=== PATIENT | female | born 1965 | race Caucasian/White ===

== ENCOUNTER 2024-08-27 09:40 | Outpatient (AMB) | payer MEDICARE, OTHER, SELFPAY ==
[2024-08-27 10:03] VITALS: BP 144/81; PULSE 81; RESP 18; TEMP 35.5; O2SAT 95; BMI 20.2
--- NOTE | 2024-08-27 10:03 | RHCORTHONT_ITS ---
Vital signs 08/27/24 10:03 Height 1.63 m Height Method Stated Weight 53.722 kg Weight Measurement Method Standing Scale BMI 20.2 BP 144/81 H Blood Pressure Source Automatic Cuff Blood Pressure Location Right Upper Arm Position Sitting Respiration 18 Pulse 81 Pulse Source Monitor Temp 95.9 F L Temp Source Temporal Artery Scan Pulse Oximetry (%) 95 Oxygen Delivery Method Room Air Med/Allergies Allergies & Medications Allergies bacitracin [From Cortisporin] Allergy (Verified 08/27/24 10:04) codeine Allergy (Verified 08/27/24 10:04) hydrocortisone [From Cortisporin] Allergy (Verified 08/27/24 10:04) neomycin [From Cortisporin] Allergy (Verified 08/27/24 10:04) polymyxin B [From Cortisporin] Allergy (Verified 08/27/24 10:04) Sulfa (Sulfonamide Antibiotics) Allergy (Verified 08/27/24 10:04) tramadol Allergy (Verified 08/27/24 10:04) Medication Reconciliation amlodipine 5 mg tablet 5 mg PO DAILY 05/15/24 [History Confirmed 08/27/24] ergocalciferol (vitamin D2) 1,250 mcg (50,000 unit) capsule See Rx Instructions .Route .COMPLEX 05/15/24 [History Confirmed 08/27/24] gabapentin 300 mg capsule 300 mg PO 2XD 05/15/24 [History Confirmed 08/27/24] polyethylene glycol 3350 17 gram/dose oral powder (Miralax) 4 g PO QDAY #850 grams 05/18/24 [Rx Confirmed 08/27/24] Exam Exam Patient is in no acute distress and is cooperative with the examination today. Patient has a normal mood and affect. Breathing is nonlabored. In no respiratory distress. Bilateral extremities were evaluated and demonstrates sensation intact to light touch. Palpable pedal pulses are present. No significant edema is present. Left hip incision is clean dry and intact. She has no pain with logroll. Assessment and Plan Problem List (1) Fracture of hip: Status: Acute Plan: Patient is doing well status post left total hip replacement for femoral neck fracture. She should continue towork with physical therapy. Her x-rays demonstrate a cementless total hip replacement in great alignment position. I will see her back in approximately 6 months. She is very happy. (2) Left displaced femoral neck fracture: Status: Acute Office Procedures GNS Level of Care Nursing/Assessment Patient Status: Established Patient Nursing Assessment/Reassesment: Medication Reconciliation, Update PMH in EMR and Vital Signs Coordination of Care: Complex Care and Chronic Disease 1-5, Education Complex Pt/Fam, Consent,records obtained, informed consent, Results/Orders obtained and Staff clarify orders Established Patient Charge Established Patient Point Assignment: 95 Established Patient Point Charge: EP Level 3 (80-115) MA Intake Visit Data Collection New Patient or Established: Established Patient (seen at [facility] within 3 years) Reason for Visit:: 6 WEEK POST OP HIP FX Seen by Clinical Staff ONLY (RN/MA): No Verbal consent obtained for Telemed visit?: No Hoop Rolls Operator Required: No PCP or OBGYN visit in last 3 months: Yes Hx Now: No Do You Feel Safe at Home: Yes Authorities Contacted: N/A Questionairres Past Medical History Past Medical History Have you ever been diagnosed with any of the following: Neurological Problems Seizures: No Cardiology Problems Congestive Heart Failure: No Hypertension: Yes Respiratory Problems Chronic Obstructive Pulmonary Disease (COPD): No Asthma: Yes Genital/Urinary Problems Renal Disease: No Musculoskeletal Problems Carpal Tunnel Syndrome: Yes Endocrine Problems Diabetes Mellitus Type 1: No Diabetes Mellitus Type 2: No Other Problems Blood Transfusions: No Blood Transfusion Reaction: No Anesthesia Reactions: Yes (severe nausea) Surgical History Hysterectomy: Yes Subjective Visit Visit for: post op #2 and hip Immunization / Flu Flu Vaccine in the Last 12 Months: No Flu Vaccine Exclusion Criteria: Already Received History of Present Illness Chief complaint: 6 POST OP HIP FX Kaylyn is doing well 6 months status post total left hip replacement for femoral neck fracture. She is doing well. She has some issues with her left ankle. She is currently be treated by another orthopedic surgeon and may be getting hardware removal. She is now seeing a linen controller and is likely to get injections Personal History Red flag PMH: BMI BMI Counceling provided: Yes Pain Pain level (0-10): 3 Pain duration: COMES AND GOES Pain location: other (specify) (HIP ) Pain quality: dull and aching Pain timing: increases with activity Associated signs & symptoms: none Ambulatory data Ambulatory device: none Treatments Improvement with previous injections: No Improvement with PT: No Improvement with NSAIDS: n/a Review of Systems Review of Systems: All systems negative unless otherwise noted in HPI.
== END 2024-08-27 10:19 | disposition home or self-care (01) ==
LOC: HODSRG 09:40
PROVIDERS: Supervising Provider Orthopaedic Surgery Adult Reconstructive Orthopaedic Surgery; Visit Provider Orthopaedic Surgery Adult Reconstructive Orthopaedic Surgery
DX: S72.002D Fracture of unspecified part of neck of left femur, subsequent encounter for closed fracture with routine healing (principal); X58.XXXD Exposure to other specified factors, subsequent encounter; Z96.642 Presence of left artificial hip joint
CPT/HCPCS: 99213; G0463

== ENCOUNTER → 2024-08-27 | Outpatient (CLI) | payer MEDICARE, OTHER, SELFPAY ==
--- NOTE | 2024-08-27 08:46 | XR_ITS ---
Examination:Left hip AP, lateral, AP pelvis 3 views Technique: Hip AP lateral, AP pelvis, 3 views Exam date and time:August 27, 2024 0929 hours INDICATIONS: Status post left hip replacement surgery May 16, 2024 FINDINGS: Total left hip arthroplasty. Satisfactory alignment The prosthetic stem is stable in alignment in the femoral shaft compared to the 92,024 exam Right hip bones of the pelvis intact IMPRESSION: Total left hip arthroplasty with satisfactory alignment.
== END | disposition home or self-care (01) ==
PROVIDERS: PCP Student in an Organized Health Care Education/Training Program; Referring Provider Orthopaedic Surgery Adult Reconstructive Orthopaedic Surgery; Visit Provider Orthopaedic Surgery Adult Reconstructive Orthopaedic Surgery
DX: M16.12 Unilateral primary osteoarthritis, left hip (principal); Z96.642 Presence of left artificial hip joint
CPT/HCPCS: 73502

== ENCOUNTER → 2024-11-10 | Outpatient (CLI) | payer MEDICARE, OTHER, SELFPAY ==
--- NOTE | 2024-11-10 | XR_ITS ---
EXAMINATION: Ankle, left 3 views . Technique: Ankle AP, oblique, lateral 3 views Date and time of exam: November 10, 2024 0728 hours INDICATIONS: Acute ankle fractures March 01, 2024 postop FINDINGS: Healed fractures distal fibular shaft and medial malleolus with satisfactory alignment No ankle dislocation IMPRESSION: Healed fractures distal fibular shaft and medial malleolus with satisfactory alignment
== END | disposition home or self-care (01) ==
LOC: CDIM 07:15
PROVIDERS: Referring Provider Orthopaedic Surgery; Visit Provider Orthopaedic Surgery
DX: Z87.81 Personal history of (healed) traumatic fracture (principal)
CPT/HCPCS: 73610

== ENCOUNTER → 2025-02-17 | Outpatient (CLI) | payer MEDICARE, OTHER, SELFPAY ==
--- NOTE | 2025-02-17 11:07 | EKG_ITS ---
[facility] Test Date: 2025-02-17 Pat Name: AMAURI ANDERSEN Department: Room: - Gender: Female Shooting Gallery Operator: KELL : 1965 Requested By: Ozzy Mendez Order Number: [id number] Reading MD: Ozzy Mendez Measurements Intervals [place] Rate: 73 P: 62 AK: 162 QRS: 80 QRSD: 129 T: 26 QT: 435 QTc: 481 Interpretive Statements SINUS RHYTHM MODERATE INTRAVENTRICULAR CONDUCTION DELAY [110+ ms QRS DURATION] NONSPECIFIC T-WAVE ABNORMALITY Compared to ECG 05/14/2024 19:56:44 T-wave abnormality now present /store/S0/[id number]/[id number].pdf
[2025-02-17 11:17] VITALS: BMI 19.5
[2025-02-17 14:06] LABS: Basophils % (Auto) 1 % (0-2.5); Eosinophils % (Auto) 1 % (0-10); Hematocrit 27.9 % (36.0-46.0); Immature Granulocytes % (Auto) 0 % (0-0); Immature Granulocytes Auto 0.01 Thou/mm3 (0.00-0.00); Lymphocytes # (Auto) 1.7 Thou/mm3 (1.0-4.8); Lymphocytes % (Auto) 29 % (10-50); Mean Corpuscular Hemoglobin 20.1 pg (25.0-35.0); Mean Corpuscular Volume 69 fL (80-100); Monocytes # (Auto) 0.6 Thou/mm3 (0.0-0.8); Monocytes % (Auto) 10 % (0-12); Neutrophils # (Auto) 3.6 Thou/mm3 (1.8-7.7); Neutrophils % (Auto) 60 % (37-80); Nucleated Red Blood Cell % 0 /100 WBC (0); Platelet Count 290 Thou/mm3 (140-440); RDW Standard Deviation 49.9 fL (36.4-46.3); Red Blood Count 4.03 Miln/mm3 (4.00-5.20)
[2025-02-17 14:12] LABS: Hemoglobin 8.1 g/dL (12.0-16.0); Partial Thromboplastin Time 20.1 Seconds (22.0-36.0); Prothrombin Time 10.7 Seconds (9.0-12.2)
[2025-02-17 14:19] LABS: Alanine Aminotransferase 28 U/L (10-49); Albumin, Serum 5.2 gm/dL (3.5-5.0); Albumin/Globulin Ratio 2.5 (1.2-2.2); Alkaline Phosphatase 143 U/L (46-116); Anion Gap 13 (7-16); BUN/Creatinine Ratio 24 Ratio (12-20); Bilirubin,Total 0.5 mg/dL (0.3-1.2); Blood Urea Nitrogen 12 mg/dL (9-23); Calcium 8.7 mg/dL (8.3-10.6); Calcium (Corrected) 8.7 mg/dL (8.5-10.1); Carbon Dioxide 25.7 mMol/L (20.0-31.0); Chloride 103 mMol/L (98-107); Creatinine (Component) 0.5 mg/dL (0.6-1.3); Estimated Creatinine Clearance 105.3 mL/min (>60); Globulin 2.1 gm/dL (2.3-3.5); Glucose 82 mg/dL (74-106); Osmolality,Calculated 281 (275-295); Potassium 4.4 mMol/L (3.4-5.1); Sodium 142 mMol/L (136-145); Total Protein 7.3 gm/dL (5.7-8.2); eGFR > 60 See Note
== END | disposition home or self-care (01) ==
LOC: SLAB 02-24 08:01
PROVIDERS: Anesthesiology; PCP Student in an Organized Health Care Education/Training Program; Referring Provider Orthopaedic Surgery; Visit Provider Orthopaedic Surgery
DX: T84.84XA Pain due to internal orthopedic prosthetic devices, implants and grafts, initial encounter (principal)
CPT/HCPCS: 36415; 80053; 85025; 85610; 85730; 93005

== ENCOUNTER 2025-02-24 07:50 | Outpatient (AMB) | payer MEDICARE, OTHER, SELFPAY ==
[2025-02-24 08:09] VITALS: BP 138/82; PULSE 93; RESP 18; TEMP 36.2; O2SAT 98; BMI 19.3
--- NOTE | 2025-02-24 08:09 | PD.ORTHCLVIS ---
Vital signs 02/24/25 08:09 Height 1.68 m Height Method Stated Weight 54.488 kg Weight Measurement Method Standing Scale BMI 19.3 BP 138/82 H Blood Pressure Source Automatic Cuff Blood Pressure Location Right Upper Arm Position Sitting Respiration 18 Pulse 93 Pulse Source Monitor Temp 97.2 F Temp Source Temporal Artery Scan Pulse Oximetry (%) 98 Oxygen Delivery Method Room Air Med/Allergies Allergies & Medications Allergies bacitracin (From Cortisporin) Allergy (Verified 02/24/25 08:12) codeine Allergy (Verified 02/24/25 08:12) hydrocortisone (From Cortisporin) Allergy (Verified 02/24/25 08:12) neomycin (From Cortisporin) Allergy (Verified 02/24/25 08:12) oxycodone Allergy (Verified 02/24/25 08:12) polymyxin B (From Cortisporin) Allergy (Verified 02/24/25 08:12) Sulfa (Sulfonamide Antibiotics) Allergy (Verified 02/24/25 08:12) tramadol Allergy (Verified 02/24/25 08:12) Medication Reconciliation amlodipine 5 mg tablet 5 mg PO DAILY 05/15/24 [History Confirmed 02/24/25] ergocalciferol (vitamin D2) 1,250 mcg (50,000 unit) capsule See Rx Instructions .Route .COMPLEX 05/15/24 [History Confirmed 02/24/25] gabapentin 300 mg capsule 300 mg PO 2XD 05/15/24 [History Confirmed 02/24/25] albuterol sulfate 90 mcg/actuation aerosol inhaler 1 inh inhalation Q8H PRN shortness of breath or wheezing 02/17/25 [History Confirmed 02/24/25] calcium 500 mg tablet 500 mg PO DAILY 02/17/25 [History Confirmed 02/24/25] fluticasone propionate 50 mcg/actuation nasal spray,suspension 1 spray intranasal DAILY 02/17/25 [History Confirmed 02/24/25] Exam Exam Patient is in no acute distress and is cooperative with the examination today. Patient has a normal mood and affect. Breathing is nonlabored. In no respiratory distress. Bilateral extremities were evaluated and demonstrates sensation intact to light touch. Palpable pedal pulses are present. No significant edema is present. Left hip incision is clean dry and intact. She has no pain with logroll. Assessment and Plan Problem List (1) Fracture of hip: Status: Acute Plan: Patient is doing well status post left total hip replacement for femoral neck fracture. She is doing well and is happy with her hip (2) Left displaced femoral neck fracture: Status: Acute Office Procedures GNS Level of Care Nursing/Assessment Patient Status: Established Patient Nursing Assessment/Reassesment: Medication Reconciliation, Update PMH in EMR and Vital Signs Coordination of Care: Complex Care and Chronic Disease 1-5, Education Complex Pt/Fam, Consent,records obtained, informed consent, Results/Orders obtained and Staff clarify orders Established Patient Charge Established Patient Point Assignment: 95 Established Patient Point Charge: EP Level 3 (80-115) MA Intake Visit Data Collection New Patient or Established: Established Patient (seen at [facility] within 3 years) Reason for Visit:: F/U HIP REPLACEMENT Seen by Clinical Staff ONLY (RN/MA): No Verbal consent obtained for Telemed visit?: No Case Management Specialist Required: No PCP or OBGYN visit in last 3 months: Yes Hx Now: No Do You Feel Safe at Home: Yes Authorities Contacted: N/A Questionairres Past Medical History Past Medical History Have you ever been diagnosed with any of the following: Neurological Problems Seizures: No Cardiology Problems Congestive Heart Failure: No Hypertension: Yes Respiratory Problems Chronic Obstructive Pulmonary Disease (COPD): No Asthma: Yes (seasonal) Genital/Urinary Problems Renal Disease: No Reproductive Problems Previous Pregnancies: Yes Musculoskeletal Problems Arthritis: Yes Carpal Tunnel Syndrome: Yes Endocrine Problems Diabetes Mellitus Type 1: No Diabetes Mellitus Type 2: No Blood Problems Anemia: Yes Other Problems Hospitalization: Yes Shingles: No Blood Transfusions: No Blood Transfusion Reaction: No Anesthesia Reactions: Yes (severe nausea) Chicken Pox: Yes Measles: Yes Cancer: No Surgical History Hysterectomy: Yes Subjective Visit Visit for: follow up visit Immunization / Flu Flu Vaccine in the Last 12 Months: No Flu Vaccine Exclusion Criteria: No Exclusion Criteria History of Present Illness Chief complaint: F/U HIP REPLACEMENT Kaylyn is doing well 6 months status post total left hip replacement for femoral neck fracture. She is doing well. She is getting osteoporosis shots starting 3 months ago Personal History Red flag PMH: BMI BMI Counceling provided: No Pain Pain level (0-10): 0 Pain duration: COMES AND GOES Pain location: other (specify) (HIP) Pain quality: other (specify) (SORENESS) Pain timing: increases with activity Associated signs & symptoms: none Ambulatory data Ambulatory device: none Treatments Improvement with previous injections: No Improvement with PT: No Improvement with NSAIDS: no Review of Systems Review of Systems: All systems negative unless otherwise noted in HPI.
== END 2025-02-24 08:33 | disposition home or self-care (01) ==
LOC: HODSRG 07:50
PROVIDERS: PCP Student in an Organized Health Care Education/Training Program; Referring Provider Student in an Organized Health Care Education/Training Program; Supervising Provider Orthopaedic Surgery Adult Reconstructive Orthopaedic Surgery; Visit Provider Orthopaedic Surgery Adult Reconstructive Orthopaedic Surgery
DX: S72.092D Other fracture of head and neck of left femur, subsequent encounter for closed fracture with routine healing (principal); X58.XXXD Exposure to other specified factors, subsequent encounter; Z96.642 Presence of left artificial hip joint; I10 Essential (primary) hypertension
CPT/HCPCS: 99213; G0463

== ENCOUNTER 2025-05-06 05:30 | Day surgery (SDC) | payer MEDICARE, OTHER, SELFPAY ==
--- NOTE | 2025-05-05 11:40 | XR_ITS ---
EXAMINATION: Ankle, left 2 views . Technique one AP lateral left ankle 2 views Date and time: May 05, 2025 1212 hrs., Comparison November 10, 2024 Indications: History ankle fractures Findings: Healed fractures medial malleolus and distal fibular shaft with stable alignment Orthopedic hardware satisfactory position Prominent osteopenia Impression: Healed fractures medial malleolus and distal fibular shaft with stable and satisfactory alignment
[2025-05-05 13:16] LABS: Basophils # (Auto) 0.1 Thou/mm3 (0.0-0.2); Basophils % (Auto) 1 % (0-2.5); Eosinophils # (Auto) 0.0 Thou/mm3 (0.0-0.5); Eosinophils % (Auto) 0 % (0-10); Hematocrit 24.9 % (36.0-46.0); Immature Granulocytes Auto 0.03 Thou/mm3 (0.00-0.00); Lymphocytes # (Auto) 3.0 Thou/mm3 (1.0-4.8); Lymphocytes % (Auto) 32 % (10-50); Mean Corpuscular HGB Conc 32.5 g/dl (31.0-37.0); Mean Corpuscular Hemoglobin 28.5 pg (25.0-35.0); Mean Corpuscular Volume 88 fL (80-100); Monocytes # (Auto) 0.5 Thou/mm3 (0.0-0.8); Monocytes % (Auto) 6 % (0-12); Neutrophils # (Auto) 5.7 Thou/mm3 (1.8-7.7); Neutrophils % (Auto) 62 % (37-80); Nucleated Red Blood Cell # 0.00 Thou/mm3 (0.00-0.00); Nucleated Red Blood Cell % 0 /100 WBC (0); Platelet Count 252 Thou/mm3 (140-440); Red Blood Count 2.84 Miln/mm3 (4.00-5.20); White Blood Count 9.3 Thou/mm3 (3.6-11.0)
[2025-05-05 13:22] LABS: INR 0.9 (0.9-1.3); Partial Thromboplastin Time 21.3 Seconds (22.0-36.0); Prothrombin Time 10.3 Seconds (9.0-12.2)
[2025-05-05 13:23] LABS: Hemoglobin 8.1 g/dL (12.0-16.0)
[2025-05-05 13:26] LABS: Alanine Aminotransferase 37 U/L (10-49); Albumin, Serum 4.5 gm/dL (3.5-5.0); Albumin/Globulin Ratio 2.8 (1.2-2.2); Alkaline Phosphatase 80 U/L (46-116); Anion Gap 11 (7-16); Aspartate Amino Transferase 32 U/L (0-34); BUN/Creatinine Ratio 36 Ratio (12-20); Bilirubin,Total 0.3 mg/dL (0.3-1.2); Blood Urea Nitrogen 18 mg/dL (9-23); Calcium 9.2 mg/dL (8.3-10.6); Calcium (Corrected) 9.2 mg/dL (8.5-10.1); Carbon Dioxide 26.0 mMol/L (20.0-31.0); Chloride 105 mMol/L (98-107); Creatinine (Component) 0.5 mg/dL (0.6-1.3); Estimated Creatinine Clearance 104.4 mL/min (>60); Globulin 1.6 gm/dL (2.3-3.5); Glucose 100 mg/dL (74-106); Osmolality,Calculated 285 (275-295); Potassium 4.0 mMol/L (3.4-5.1); Sodium 142 mMol/L (136-145); Total Protein 6.1 gm/dL (5.7-8.2); eGFR > 60 See Note
--- NOTE | 2025-05-05 14:44 | ESHP_ITS ---
RE: AMAURI ANDERSEN : 1965 DATE OF ADMISSION: 05/06/2025 HISTORY OF PRESENT COMPLAINT: The patient came to my office on 05/05/2025 for detailed preop history and physical examination. The patient is status post ORIF of the bimalleolar fracture of the left ankle done a few months back. The fracture has healed up. However, the screws in the plates bother her, especially during the cold time and she wants it to be taken out. There is mild swelling as well at the left ankle. PAST MEDICAL HISTORY: The patient has a history of high blood pressure. No history of diabetes mellitus, asthma, seizure, chest pain, myocardial infarction, or bleeding disorder. PAST SURGICAL HISTORY: Status post ORIF of the left ankle. DRUG HISTORY: The patient is on; 1. Amlodipine. 2. Albuterol. 3. Vitamin D2. 4. Gabapentin. 5. Hydrocodone on and off. ALLERGIES: NIL KNOWN. FAMILY HISTORY AND SOCIAL HISTORY: Noncontributory in this case. PHYSICAL EXAMINATION: GENERAL: Normal built lady. VITAL SIGNS: Pulse 77 per minute, blood pressure is 138/86. NECK EXAMINATION: Soft. Supple. No mass felt. Trachea is centrally placed. CARDIOVASCULAR SYSTEM: First and second heart sound normal. No murmur heard. RESPIRATORY SYSTEM: Bilateral vesicular breath sounds. CHEST: Clear. ABDOMEN: Soft. No mass felt. Bowel sounds present. EXTREMITIES: Left ankle examination revealed eschar on each side. Active range of motion is reasonably good. Dorsiflexion and plantarflexion, eversion and inversion is good. DIAGNOSTIC DATA: X-ray obtained a few months back revealed very good healing and very good alignment of the ankle. ASSESSMENT AND PLAN: Since the patient is symptomatic, therefore, the removal of the plate from medial and lateral meniscus was discussed and advised. His screws are on the medial side. Risk with anesthesia was explained and that includes, but not limited to reaction to anesthetic agents, cardiac arrest, rarely it might be fatal. Risk with operations include infection and if that happens, the patient may need further surgical procedure. Other risks include delayed healing, wound dehiscence, etc. No guarantee is given regarding the outcome of the procedure and/or relief of symptoms. Detailed discussion took place. Surgery is booked for 05/06/2025. Appropriate labwork was done. DT: 13:49:44 TT: 14:42:00 Ref: [id number] - TID: [id number]
--- NOTE | 2025-05-05 16:16 | SUR.PREOP ---
Hgb 8.1, Dr Hamlin and Blanche notified, Dr Hamlin ok to proceed no new orders.
[2025-05-06] VITALS (7 sets, daily range): BP systolic 113–159; BP diastolic 62–91; PULSE 88–105; RESP 13–22; TEMP 36.6–37.1; O2SAT 95–100
[2025-05-06] MEDS: RINGERS LACTATED 1000 ML 1,000 ML 20 ML IV (06:33)
--- NOTE | 2025-05-06 07:24 | SUR.PREOP ---
Patient's family expressed gratitude for prayer before the procedure.
--- NOTE | 2025-05-06 09:11 | ESOP_ITS ---
Date of Procedure 05/06/25 Pre Op Diagnosis Painful bimalleolar implant left ankle Post Op Diagnosis Same Procedure 1. Removal of the plate and screws left lateral malleolus (CPT 25410) 2. Removal of 3 cannulated screws with washer left medial malleolus. (CPT 79199 ) Findings Refer dictation Procedure Description Patient was given general endotracheal anesthesia. Block was given as well. Following that part was thoroughly prepped and draped. Tourniquet was placed on the left upper thigh After thoroughly prepping and draping the part a tourniquet pressure was raised to 350 mmHg Or 1 removal of the plate and screws from the lateral malleolus Skin incision was made over the previously placed eschar extending from distal end to proximal line. The length of the scar was about 4 inches or so. Deeper dissection was carried out. Subcu tissue and the fascia was incised. Following that the plate was exposed. Wound was irrigated with antibiotic solution. The help of a screwdriver all the screws were removed. The plate was removed. The bony overgrowth from the lateral malleolus and distal fibula was removed with the help of bone rongeur Wound was irrigated with antibiotic solution of 4 to 5 minutes Subcutaneous tissue was closed with the help of 0 Vicryl in an interrupted fashion. Skin was closed with sudha 2. Removal of the 3 cannulated screw from medial malleolus with washer Another skin incision was made over the previously placed eschar. The length of the incision was about 1 inch. Deeper dissection carried out. The head of the 3 screws were located. With the help of a screwdriver all the screws were removed. The washer was also taken out And was irrigated with antibiotic solution every 3 to 4 minutes Exparel the subcu tissue was closed with help of 0 Vicryl and the skin was closed with sudha About 30 mL of quarter percent Marcaine was injected altogether and on both the skin incision site After cleaning the wound with hydrogen peroxide solution and sterile dressing was applied and tourniquet pressure was released Patient tolerated procedure very well. Estimated blood loss 5 mL. Pathology / specimen None Estimated Blood Loss 5 Surgeon Ozzy Gorman MD Surgical Staff Operation Date: 05/06/25 07:30 Case Staff SALES AGENT PEST CONTROL SERVICE: David Washington
--- NOTE | 2025-05-06 09:13 | SUR.PHASEI ---
pt received from OR in recovery bay 5. pt awake and alert, breathing unlabored on oxymask 8l. v/s stable. pt dressing to left lower extremity cdi. report received from Jasmyn URENA and Vernon DHALIWAL.
--- NOTE | 2025-05-06 09:25 | SUR.PHASEI ---
pt able to tolerate oral fluids without difficulty swallowing or nausea/vomiting.
[2025-05-06] MEDS: MEPERIDINE INJ 50 MG/ML VIAL 25 MG IVP (09:28)
[2025-05-06] MEDS: ONDANSETRON INJ 2 MG/ML INJ 2 ML 4 MG IVP (09:31)
[2025-05-06] MEDS: fentaNYL CIT INJ 50 mCg/ML AMP 2ML 25 MCG IVP (09:45)
--- NOTE | 2025-05-06 10:24 | SUR.PHASEII ---
pt awake and alert, breathing unlabored on room air. v/s stable. pt dressing to left lower extremity cdi. pt able to transfer to wheelchair. d/c instructions given with s/o Tenzin in room, all questions answered. pt d/c via wheelchair with all belongings.
== END 2025-05-06 10:24 | disposition home or self-care (01) ==
PROVIDERS: Anesthesiology; PCP Student in an Organized Health Care Education/Training Program; Referring Provider Orthopaedic Surgery; Visit Provider Orthopaedic Surgery
PROC: (CPT 20680; principal; 2025-05-06 07:30)
DX: T84.84XA Pain due to internal orthopedic prosthetic devices, implants and grafts, initial encounter (principal); Y83.8 Other surgical procedures as the cause of abnormal reaction of the patient, or of later complication, without mention of misadventure at the time of the procedure
CPT/HCPCS: 20680; 36415; 73600; 80053; 85025; 85610; 85730; A4217; A4649; J0690; J1100; J1580; J2175; J2405; J2704; J3010; J3490; J7120; J0665

== ENCOUNTER 2025-06-17 08:40 | Day surgery (SDC) | payer MEDICARE, OTHER, SELFPAY ==
[2025-06-16 10:03] VITALS: BMI 21.3
[2025-06-16 11:29] LABS: Basophils # (Auto) 0.0 Thou/mm3 (0.0-0.2); Basophils % (Auto) 1 % (0-2.5); Eosinophils # (Auto) 0.0 Thou/mm3 (0.0-0.5); Eosinophils % (Auto) 1 % (0-10); Hematocrit 37.3 % (36.0-46.0); Hemoglobin 11.5 g/dL (12.0-16.0); Immature Granulocytes Auto 0.01 Thou/mm3 (0.00-0.00); Lymphocytes # (Auto) 2.3 Thou/mm3 (1.0-4.8); Lymphocytes % (Auto) 34 % (10-50); Mean Corpuscular HGB Conc 30.8 g/dl (31.0-37.0); Mean Corpuscular Hemoglobin 27.8 pg (25.0-35.0); Mean Corpuscular Volume 90 fL (80-100); Monocytes # (Auto) 0.5 Thou/mm3 (0.0-0.8); Monocytes % (Auto) 7 % (0-12); Neutrophils # (Auto) 3.8 Thou/mm3 (1.8-7.7); Neutrophils % (Auto) 57 % (37-80); Nucleated Red Blood Cell # 0.00 Thou/mm3 (0.00-0.00); Nucleated Red Blood Cell % 0 /100 WBC (0); Platelet Count 326 Thou/mm3 (140-440); RDW Standard Deviation 43.5 fL (36.4-46.3); Red Blood Count 4.14 Miln/mm3 (4.00-5.20); White Blood Count 6.6 Thou/mm3 (3.6-11.0)
[2025-06-16 11:39] LABS: INR 0.9 (0.9-1.3); Partial Thromboplastin Time 26.6 Seconds (22.0-36.0); Prothrombin Time 10.1 Seconds (9.0-12.2)
[2025-06-16 11:40] LABS: Alanine Aminotransferase 24 U/L (10-49); Albumin, Serum 5.2 gm/dL (3.5-5.0); Albumin/Globulin Ratio 2.5 (1.2-2.2); Alkaline Phosphatase 72 U/L (46-116); Anion Gap 9 (7-16); Aspartate Amino Transferase 32 U/L (0-34); BUN/Creatinine Ratio 20 Ratio (12-20); Bilirubin,Total 0.3 mg/dL (0.3-1.2); Blood Urea Nitrogen 10 mg/dL (9-23); Calcium 9.4 mg/dL (8.3-10.6); Calcium (Corrected) 9.4 mg/dL (8.5-10.1); Carbon Dioxide 25.8 mMol/L (20.0-31.0); Chloride 105 mMol/L (98-107); Creatinine (Component) 0.5 mg/dL (0.6-1.3); Estimated Creatinine Clearance 104.6 mL/min (>60); Globulin 2.1 gm/dL (2.3-3.5); Glucose 81 mg/dL (74-106); Osmolality,Calculated 277 (275-295); Potassium 4.1 mMol/L (3.4-5.1); Sodium 140 mMol/L (136-145); Total Protein 7.3 gm/dL (5.7-8.2); eGFR > 60 See Note
[2025-06-17] VITALS (13 sets, daily range): BP systolic 127–164; BP diastolic 79–98; PULSE 67–117; RESP 16–23; TEMP 37.1–37.3; O2SAT 96–100; BMI 21.2
--- NOTE | 2025-06-17 09:24 | SUR.PREOP ---
Patient expressed gratitude for prayer before their procedure.
[2025-06-17] MEDS: SCOPOLAMINE 1 MG TDSY TOP (11:32)
--- NOTE | 2025-06-17 12:45 | SUR.PHASEI ---
pt received to pacu bay 8. vss. breathing even and unlabored. pt awoke on arrival. denied pain and nausea. dressing cdi. report from dr pittman and nurse nadine.
--- NOTE | 2025-06-17 12:45 | PD.SUROPNT ---
Date of Procedure 06/17/25 Pre Op Diagnosis Infected left ankle wound Post Op Diagnosis Same Procedure Incision and debridement of the left ankle wound over the medial malleolar area Findings Refer dictation Procedure Description Patient was given general endotracheal anesthesia. Once satisfactory anesthesia was achieved a tourniquet was placed on left upper thigh. Following that part was thoroughly prepped and draped. After raising the leg for couple of minutes the tourniquet pressure was raised to 350 mmHg There was an opening over the medial malleolus of about 1 inch size. There is little discharge coming out I skin incision was made over the margin of the skin. Culture swab was obtained for aerobic and anaerobic culture sensitivity and for Gram staining Following the deeper incision was made. With the help of scissors and knife all the infected tissue was removed. Following that the wound was irrigated with copious amount of antibiotic solution. Hydrogen peroxide solution and iodine solution was used. The wound was looking rather healthy after debridement. The wound was then closed with a layer of 2-0 Prolene in an interrupted fashion Patient tolerated procedure well. Estimated blood loss 1 mL. Progress in this case is fair to good Anesthesia GETA Pathology / specimen None Estimated Blood Loss 1 Surgeon Ozzy Gorman MD Surgical Staff Operation Date: 06/17/25 11:45 <No data on this case meets the specified criteria>
[2025-06-17] MEDS: HYDROmorphone INJ 2 MG/ML VIAL 0.4 MG IVP ×4 (13:08→13:54)
--- NOTE | 2025-06-17 13:14 | SUR.PHASEI ---
report given to florence. alex hobson. vs. breathing even and unlabored. tolerating po ice chips.
--- NOTE | 2025-06-17 13:15 | SUR.PHASEII ---
1315: received report from AYANNA Page. pt alert and oriented. no s/s of resp. distress or discomfort. given pain medication as ordered. dressing to left ankle clean, dry and intact. no bleeding or discharge noted. positive CMS: able to wiggle, cap refill less than 3 seconds and positive pulse.
--- NOTE | 2025-06-17 13:15 | SUR.PHASEII ---
1315: pt tolerated ice chiops without any issues.
--- NOTE | 2025-06-17 13:20 | ESHP_ITS ---
RE: AMAURI ANDERSEN : 1965 DATE OF ADMISSION: 06/17/2025 HISTORY AND PHYSICAL Patient came to my office on 06/16/2025 for detailed preop history and physical examination. HISTORY OF PRESENT COMPLAINT: Patient present to me earlier with history of removal of the implant from the medial malleolar area and lateral malleolar area. The lateral malleolar wound healed up. However, on the medial aspect the wound is open and not healing up. Patient's having on and off discharge for last 1 month. Decision was made to irrigate and debride it and close the wound. PAST MEDICAL HISTORY: Patient has history of high blood pressure, vitamin D deficiency and history of asthma. PAST SURGICAL HISTORY: Status post open reduction internal fixation of left ankle fracture, removal of the implant from the left ankle area. Patient also underwent gastric bypass surgery some time back. DRUG HISTORY: Patient is on; 1. Amlodipine. 2. Vitamin D2. 3. Gabapentin. 4. Albuterol sulfate. ALLERGIES: NIL KNOWN. FAMILY HISTORY AND SOCIAL HISTORY: Noncontributory. PHYSICAL EXAMINATION: GENERAL: Normal built lady. VITAL SIGNS: Pulse 77 per minute. Blood pressure 139/86. NECK: Soft, supple, no mass felt, trachea is centrally placed. CARDIOVASCULAR SYSTEM: First and second heart sound normal, no murmur heard. RESPIRATORY SYSTEM: Bilateral vesicular breath sounds. CHEST: Clear. ABDOMEN: Soft, no mass felt, bowel sounds present. MUSCULOSKELETAL: Left ankle examination revealed very well healed scar on the lateral side. On the medial side, there is a scar of about 3 inches long. About 1 inch of the scar site wound is open and there is a little discharge coming out. IMAGING: X-ray of the left ankle did not reveal any osteomyelitis. The fracture has healed up. ASSESSMENT AND PLAN: Patient was explained that since it is going on for more than 1 month, therefore it is good idea to go and irrigate it, debride it and possibly close it. Detailed discussion took place. Patient wanted to proceed with surgery. Risks with anesthesia was explained and that includes but not limited to reaction to anesthetic agents, cardiac arrest and rarely it might be fatal. Risk with operation includes infection and if that happens patient may need further surgical procedure. Although wound appears to be infected anyway. No guarantee is given regarding outcome of the procedure and or functional outcome and or healing process. All questions were answered. Accordingly surgery is booked for 06/17/2025. Appropriate lab work is done. DT: 12:51:37 TT: 13:18:00 Ref: [id number] - TID: [id number]
--- NOTE | 2025-06-17 14:12 | SUR.PHASEII ---
Dr. Reynoso order PO PRN for c/o pain. Patient allergies to Oxycodone, per patient she took Hydrocodone in the past for 2 days and no adverse drug reaction reported.
--- NOTE | 2025-06-17 14:15 | SUR.PHASEII ---
1415: pt tolerate jello and saltine crackers without any issues.
[2025-06-17] MEDS: HYDROcodone/APAP 5/325 TABLET 1 TAB PO (14:21)
--- NOTE | 2025-06-17 15:00 | SUR.PHASEII ---
1500: While changing her clothes, pt c/o itching on her face and body. no redness noted to body and face upon assessment. called Dr. Reynoso and notified of patient c/o, new new order received of Benadryl 25 mg IVP
--- NOTE | 2025-06-17 15:15 | SUR.PHASEII ---
1515: pt uses the bathroom to urinate. she verbalizes she able to urinate wihout any issues.
== END 2025-06-17 15:22 | disposition home or self-care (01) ==
PROVIDERS: Anesthesiology; PCP Student in an Organized Health Care Education/Training Program; Referring Provider Orthopaedic Surgery; Visit Provider Orthopaedic Surgery
PROC: (CPT 97597; principal; 2025-06-17 11:30)
DX: T81.31XA Disruption of external operation (surgical) wound, not elsewhere classified, initial encounter (principal); Z98.84 Bariatric surgery status
CPT/HCPCS: 97597; 36415; 80053; 85025; 85610; 85730; 87070; 87075; 87205; A4649; J0131; J1171; J1200; J1580; J1885; J2250; J2405; J2704; J3010; J3373; J3490; A9270; J0665